=== PATIENT | male | born 1945 ===

== ENCOUNTER → 2016-10-03 | Day surgery (SDC) | payer OTHER ==
[~2016-10-03] MED LIST: 500ML BSS 0.3ML EPI 1:1000PF IRRIG ONE; ACETAMINOPHEN 325 MG TAB PO PRN; AMVISC PLUS 0.8ML SYRINGE INT OCU ONE; ASPCH81X PO; BSS FLUSH ONE; BUPR-83 PO; BUPR75TA20 PO; CALC625T8 PO; CLN200 PO; DULO60CA44 PO; EpINEphrine INJ 1MG/ML AMP 1 MG/ML AMP ONE; HYT/2 PO; LACTATED RINGER'S 1000ML 500 ML IV SCH; LIDOCAINE 3.5% OPH GEL PER APPLICATION CHARGE ONE; LIDOCAINE HCL 1% MPF 2 ML VIAL ONE; MIDAZOLAM HCL 1 MG/ML 2ML VIAL ONE; OCUCOAT 1 ML SOLN IO ONE; POVIDONE-IODINE OP SOLN 30 ML BTL ONE; PROPARACAINE 0.5% OP SOLN PER DROP CHARGE OPL SCH; SENN-61 PO; SODIUM CHLORIDE 0.9% 500ML IV SCH; TOBRAMYCIN/DEXAMETHASONE OPH OINT PER APPLN CHARGE ONE
[2016-10-03] MEDS: PHENYLEPHRINE HCL 2.5% OP SOLN PER DROP CHARGE OPL SCH ×2 (09:49→09:54)
[2016-10-03] MEDS: TROPICAMIDE 1% OP SOLN PER DROP CHARGE OPL SCH ×2 (09:50→09:55)
[2016-10-03] MEDS: CYCLOPENTOLATE HCL 1% OP SOLN PER DROP CHARGE OPL SCH ×2 (09:51→09:56)
[2016-10-03] MEDS: KETOROLAC 0.5% OP SOLN PER DROP CHARGE OPL SCH ×2 (09:52→09:57)
[2016-10-03] MEDS: GATIFLOXACIN OP SOLN PER DROP CHARGE OPL SCH ×2 (09:53→10:03)
--- NOTE | 2016-10-03 10:40 | History & Physical Bridge - [place] ---
H&P Re-Evaluation Bridge Note: I have examined the patient, reviewed the History & Physical and in the interval since the performance of the History & Physical I have noted the following changes of clinical significance: No changes noted
--- NOTE | 2016-10-03 11:19 | [facility] Operative Report ---
Operative Report 1. PREOPERATIVE DIAGNOSIS: Cataract of the left eye. 2. POSTOPERATIVE DIAGNOSIS: Same. 3. PROCEDURE: Phacoemulsification with intraocular lens implantation of the left eye. SURGEON: Dr. Benedicto Xiao. ANESTHESIA: Topical Lidocaine gel, 1% Non- Preserved intracameral Lidocaine, and monitored intravenous sedation. INDICATIONS FOR THE PROCEDURE: The patient is a 71 - year-old male with a history of cataract of the left eye causing significant visual impairment. The details of the proposed procedure were explained to the patient who asked appropriate questions and following discussion of all risks, benefits and alternatives agreed to have the procedure done. 4. OPERATION AND FINDINGS: DESCRIPTION OF PROCEDURE: After informed consent was obtained, the patient was brought to the Operating Room at the [facility]. The patient was placed in a supine position and then the left eye was prepped and draped in the usual sterile fashion for intraocular surgery. A drop of topical Lidocaine gel was placed in the operative eye. A wire lid speculum was then placed in the fornices. A corneal paracentesis was then created temporally. The Non-Preserved Lidocaine was then instilled into the anterior chamber. The anterior chamber was then pressurized with viscoelastic. A 2.0 mm clear corneal incision was then created temporally. A cystotome was inserted into the anterior chamber and used to create a tear in the anterior lens capsule. This capsular tear was then used to create a small flap and the flap was dragged in a counterclockwise direction in order to create a continuous curvilinear capsulorrhexis. Hydrodissection was accomplished with balanced salt solution. Phacoemulsification of the lens nucleus was then performed in a standard [id number] technique. The phaco time was 27 seconds with an average power of 12 %. The remaining cortical material was removed using irrigation aspiration. The capsular bag was then filled with viscoelastic. A [employer] Lomb MI60L +20.5 diopters lens was then loaded into the injector and injected into the capsular bag. The remaining viscoelastic was removed with the irrigation aspiration handpiece. The wound was hydrated and then checked and found to be watertight. The intraocular pressure was checked and found to be adequate. The wire lid speculum was removed and the patient's face was cleaned and dried. TobraDex ointment was placed in the inferior fornix. The patient was discharged to the Recovery Room having tolerated the procedure well. There were no complications. The patient will be seen tomorrow in the office for follow-up. I attest to the content of the Intraoperative Record and any orders documented therein. Any exceptions are noted below.
--- NOTE | 2016-10-03 11:19 | Discharge Instructions-SurgCtr ---
Discharge Instructions Visit Reason for Visit: Cataract Left Eye Discharge Discharge Diagnosis / Problem: cataract Discharge Goals Goal(s): Improve function Activity Recommendations Activity Limitations: per Instructions/Follow-up section Anesthesia . Post Anesthesia Instructions: If you have had General Anesthesia or IV Sedation: * Do not drive today. * Resume driving when surgeon permits. * Do not make important decisions or sign legal documents today. * Call surgeon for: 1. Temperature elevations greater than 101 degrees F. 2. Uncontrollable pain. 3. Excessive bleeding. 4. Persistent nausea and vomiting. 5. Medication intolerance (nausea, vomiting or rash). * For nausea and vomiting use only clear liquids such as: tea, soda, bouillon until nausea subsides, then gradually increase diet as tolerated. * If you have any concerns or questions, call your surgeon's office. If physician is unavailable and it is an emergency, call 911 or go to the nearest emergency room. . Instructions / Follow-Up Instructions / Follow-Up ACTIVITY RECOMMENDATIONS: * No strenuous lifting, jogging or running for 4 days * No swimming or yard work for 1 week. * Limited bending is permitted, such as putting on shoes. RETURN TO SCHOOL/WORK: No work until seen by physician in office. MEDICATIONS: Resume previous medications unless instructed otherwise by your surgeon. This includes eye drops for glaucoma. Zymaxid/Gatifloxacin (santiago cap) - one drop every 2 hours until bedtime Nevanac/Ilevro/Prolensa/Ketorolac (avalos cap) - one drop every 4 hours until bedtime Prednisolone (white/pink cap, SHAKE WELL) - one drop every 2 hours until bedtime Starting tomorrow - all 3 drops every 4 hours until seen in the office Optive drops - as needed for discomfort SPECIAL CARE INSTRUCTIONS: * Wear eyeshield when sleeping, for four nights. * You may wear your own glasses or sunglasses while awake. * You may read or watch TV * You may shower and wash your face, but be gentle around the eye and pat dry. * Blurry vision and mild irritation are normal. * Call office if pain is more severe or vision becomes dark at . FOLLOW UP VISIT: Follow-up with Dr Xiao tomorrow. Diet Recommendations Home Diet: resume previous diet Procedures Procedures Performed: Left Cataract Phacoemulsification With Intraocular Lens Implant Pending Studies Studies pending at discharge: no Medical Emergencies . Who to Call and When: Medical Emergencies: If at any time you feel your situation is an emergency, please call 911 immediately. . Non-Emergent Contact Non-Emergency issues call your: C Consultant . . "Provider Documentation" section prepared by Benedicto Xiao.
[2016-10-03 11:34] VITALS: BP 132/80; PULSE 82; O2SAT 97
--- NOTE | 2016-10-03 11:43 | Anesthesia Progress Nt - [facility] ---
Anesthesia Post Op Note Date & Time Oct 03, 2016 at 11:42 Vital Signs Pain Intensity: 0 Vital Signs Past 12 Hours Date Time Temp Pulse Resp B/P Pulse Ox O2 Delivery O2 Flow Rate FiO2 10/03/16 11:34 82 16 132/80 97 Room Air 10/03/16 11:19 36.6 79 16 120/77 98 Room Air 10/03/16 09:44 36.8 83 18 118/73 95 Room Air Notes Mental Status: alert / awake / arousable, participated in evaluation Nausea / Vomiting: adequately controlled Pain: adequately controlled Airway Patency, RR, SpO2: stable & adequate BP & HR: stable & adequate Hydration State: stable & adequate Anesthetic Complications: no major complications apparent Pt doing well.
== END | disposition home or self-care (01) ==
LOC: X.SURG 09:32
PROVIDERS: ATTEND Ophthalmology
DX: H26.9 Unspecified cataract (principal); H54.7 Unspecified visual loss; I63.50 Cerebral infarction due to unspecified occlusion or stenosis of unspecified cerebral artery; M17.9 Osteoarthritis of knee, unspecified

== ENCOUNTER 2019-06-24 06:52 | Inpatient (IN) ==
--- NOTE | 2019-06-23 09:59 | Anesthesiology Consultation ---
Date of Service June 23, 2019 Assessment & Plan (1) Encounter for pre-operative examination: Chart review (06/23): Limited information received from [facility]. Will need to review PMHX/PSHX AM DOS. Chart Review Chart Review: Acceptable Risk for Surgery (pending preop testing) and Patient seen in Pre Admission Testing Teaching & Discussion Pre-Anesthesia Teaching/Discussion Notes: Instructed NPO after midnight before surgery,except medications with 15 cc of water. Medication instructions provided according to the PAT guidelines. History Surgery Operation Date: 06/24/19 09:20 Proposed Procedures p Right Humerus Hardware Removal, - Dallas Villarreal MD s with Irrigation and Debridement - Dallas Villarreal MD Height/Weight Height: 5 ft 6 in Weight: 76.204 kg Allergies Allergy/AdvReac Type Severity Reaction Status Date / Time No Known Drug Allergies Allergy Unknown . Verified 06/19/19 11:54 Medications Home Medications Medication Instructions Recorded Confirmed Last Taken aspirin [Aspirin Low Dose] 81 mg PO DAILY 06/19/19 06/19/19 Unknown carboxymethylcellulose sodium 1 drp OPHTHALMIC (EYE) BID 06/19/19 06/19/19 Unknown [Artificial Tears (cmc)] cyproheptadine 4 mg PO BID PRN 06/19/19 06/19/19 Unknown diclofenac sodium 100 mg PO DAILY 06/19/19 06/19/19 Unknown tamsulosin 0.4 mg PO QPM 06/19/19 06/19/19 Unknown Past Medical History Medical History Enlarged prostate History of rectal bleeding Hx of folliculitis Hypertension Past Surgical History Surgical History History of cataract extraction
[~2019-06-24 06:52] MED LIST changes: -500ML BSS 0.3ML EPI 1:1000PF IRRIG ONE; -ACETAMINOPHEN 325 MG TAB PO PRN; -AMVISC PLUS 0.8ML SYRINGE INT OCU ONE; -ASPCH81X PO; -BSS FLUSH ONE; +BUPIVACAINE 0.25% 30 ML VIAL ONE; -BUPR-83 PO; -BUPR75TA20 PO; -CALC625T8 PO; -CLN200 PO; -DULO60CA44 PO; +EPINEPHrine INJ 1 MG/ML AMP ONE; -EpINEphrine INJ 1MG/ML AMP 1 MG/ML AMP ONE; -HYT/2 PO; +LACTATED RINGER'S 1,000 ML IV SCH; -LACTATED RINGER'S 1000ML 500 ML IV SCH; -LIDOCAINE 3.5% OPH GEL PER APPLICATION CHARGE ONE; -LIDOCAINE HCL 1% MPF 2 ML VIAL ONE; -MIDAZOLAM HCL 1 MG/ML 2ML VIAL ONE; -OCUCOAT 1 ML SOLN IO ONE; -POVIDONE-IODINE OP SOLN 30 ML BTL ONE; -PROPARACAINE 0.5% OP SOLN PER DROP CHARGE OPL SCH; -SENN-61 PO; -SODIUM CHLORIDE 0.9% 500ML IV SCH; -TOBRAMYCIN/DEXAMETHASONE OPH OINT PER APPLN CHARGE ONE; +VANCOMYCIN CONSULT ACTIVE PRN
[2019-06-24 07:40] LABS: Basophils # (auto) 0.03 K/uL (0-0.2); Basophils % (auto) 0.4 %; Hemoglobin 14.2 g/dL (14.0-18.0); Immature Granulocytes # (auto) 0.02 K/uL (0.00-0.02); Immature Granulocytes % (auto) 0.3 %; Lymphocytes # (auto) 1.01 K/uL (1.2-3.4); Lymphocytes % (auto) 15.1 %; Mean Corpuscular Hemoglobin 29.7 pg (25-34); Mean Corpuscular Volume 85.8 fL (80-100); Mean Platelet Volume 9.6 fL (7.4-10.4); Monocytes # (auto) 0.73 K/uL (0.11-0.59); Monocytes % (auto) 10.9 %; Neutrophils % (auto) 70.3 %; Platelet Count 208 K/uL (130-400); RDW Coefficient of Variation 13.7 % (11.5-14.5); RDW Standard Deviation 42.5 fL (36.4-46.3); Red Blood Count 4.78 M/uL (4.7-6.1); White Blood Count 6.69 K/uL (4.8-10.8)
[2019-06-24 07:41] LABS: Mean Corpuscular Hgb Conc 34.6 g/dL (32-36)
[2019-06-24 07:49] LABS: INR 1.1 (0.9-1.1); Prothrombin Time 11.2 Seconds (9.0-12.0)
[2019-06-24] MEDS ORDERED: DEXAMETHASONE SOD INJ 4 MG/ML VIAL ONE (07:53)
[2019-06-24] MEDS ORDERED: MIDAZOLAM HCL 1 MG/ML 2ML VIAL ONE (07:53)
[2019-06-24] MEDS ORDERED: ROCURONIUM BROMIDE 10 MG/ML 5 ML VIAL ONE (07:53)
[2019-06-24] MEDS ORDERED: ONDANSETRON INJ 2 MG/ML 2 ML VIAL ONE ×2 (07:53→14:26)
[2019-06-24] MEDS ORDERED: LIDOCAINE HCL 2% 2 ML VIAL/AMP(20MG/ML) INFIL ONE (07:53)
[2019-06-24] MEDS ORDERED: PROPOFOL IV EMULSION 10 MG/ML 20 ML VIAL IV ONE (07:53)
[2019-06-24] MEDS ORDERED: fentaNYL citrate 100 MCG/2 ML VIAL ONE ×4 (07:54→13:25)
[2019-06-24 07:57] LABS: Albumin Level 3.7 gm/dl (3.4-5.0); BUN Creatinine Ratio 16.7 (10-20); Bilirubin Direct 0.2 mg/dl (0-0.2); Calcium 9.1 mg/dl (8.5-10.1); Creatinine Clr Calc Pharmacy 55.4 ml/min; Est GFR (Non-African American) 69.9; Potassium 4.1 mmol/L (3.5-5.1)
[2019-06-24 08:00] LABS: Bilirubin,Total 0.7 mg/dl (0.2-1); Total Protein 7.5 gm/dl (6.4-8.2)
[2019-06-24] MEDS ORDERED: ePHEDrine sulfate 50 MG/ML AMP IV PRN (08:19)
[2019-06-24] MEDS ORDERED: ONDANSETRON INJ 2 MG/ML 2 ML VIAL IV PRN ×2 (08:19→16:26)
[2019-06-24] MEDS ORDERED: ATROPINE SULFATE 0.1 MG/ML 10ML SYR IV PRN (08:19)
[2019-06-24] MEDS ORDERED: fentaNYL citrate 100 MCG/2 ML VIAL IV PRN (08:19)
[2019-06-24] MEDS ORDERED: LIDOCAINE HCL 1% 20 ML VIAL ONE (10:26)
[2019-06-24] MEDS ORDERED: BUPIVACAINE 0.5 % 5 MG/1 ML MPF 30ML VIAL ONE (10:26)
[2019-06-24] MEDS ORDERED: BACITRACIN INJ 50,000 UNIT VIAL ONE (10:27)
[2019-06-24] MEDS ORDERED: GENTAMICIN SULFATE 40 MG/ML 2 ML VIAL ONE (10:40)
[2019-06-24] MEDS ORDERED: VANCOMYCIN HCL 1000MG/20ML VIAL ONE (10:41)
[2019-06-24] MEDS: CEFAZOLIN 1000MG 1,000 MG/7.5 ML SYR IV SCH ×2 (11:18→13:57)
[2019-06-24] MEDS: VANCOMYCIN HCL 1,000 MG/270 ML BAG IV SCH ×2 (11:19→13:57)
[2019-06-24] MEDS ORDERED: HYDROmorphone INJ 2 MG/ML SYR/VIAL ONE (13:00)
[2019-06-24] MEDS ORDERED: KETAMINE HCL INJ 50 MG/ML 10 ML VIAL ONE (13:58)
[2019-06-24] MEDS ORDERED: GLYCOPYRROLATE 0.2 MG/ML VIAL ONE (13:58)
[2019-06-24] MEDS ORDERED: ACETAMINOPHEN 1000 MG/100 ML IV IV ONE (14:04)
--- NOTE | 2019-06-24 15:23 | Operative Report ---
Post Operative Report Pre & Post Diagnosis Operation Date: 06/24/19 09:20 Pre-Op Diagnosis: Right Humerus Hardware Infection Post-Op Diagnosis: Right Humerus Hardware Infection Procedure Operation Date: 06/24/19 09:20 Actual Procedures p Right Humerus Hardware Removal,(Right) - Dallas Villarreal MD s with Irrigation and Debridement(Right) - Dallas Villarreal MD Surgeon Dallas Villarreal M.D. Floor Attendant Antonio Burrows, fellow and Duyen Ramos PA-C Estimated Blood Loss 100 Findings Consistent with Post-Op Diagnosis Specimens removed hardware, bone and soft tissue cultures Anesthesia Type General Regional Complications none Description of Procedure Patient was taken to the operating room and placed under general anesthesia. His IV antibiotics were held due to intraoperative cultures. He was given 1 g of IV vancomycin after the intraoperative cultures were obtained. Time out was performed. He is prepped and draped in routine sterile fashion. I was present for the entire case and assisted with exposure, hemostasis, explantation of the hardware, splinting and closure. Please see Dr. Villarreal's operative report for further detail. Patient was awakened and transferred to recovery room in stable condition. I attest to the content of the Intraoperative Record and any orders documented therein. Any exceptions are noted below.
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
--- NOTE | 2019-06-24 15:24 | Fluoroscopy Report ---
FL humerus RT 2V CLINICAL HISTORY: RT HARDWARE REMOVAL COMPARISON STUDY: Right humerus 05/07/2019. FLUOROSCOPY TIME: 5 seconds. FINDINGS: 3 fluoroscopic spot images of the right humerus. Interval removal of the lateral cortical p late and screws. Multiple punctate metallic densities again noted within the right upper arm and righ t lateral chest wall. These remain unchanged. Old, healed right humeral fracture is again noted. IMPRESSION: Fluoroscopy provided for removal of the right humeral cortical plate and screws. Electronically signed by: Kali Uribe M.D. 06/24/2019 3:23 PM
--- NOTE | 2019-06-24 15:26 | Operative Report ---
Post Operative Report Pre & Post Diagnosis Operation Date: 06/24/19 09:20 Pre-Op Diagnosis: Right Humerus Hardware Infection Post-Op Diagnosis: Right Humerus Hardware Infection Procedure Operation Date: 06/24/19 09:20 Actual Procedures p Right Humerus Hardware Removal,(Right) - Dallas Villarreal MD s with Irrigation and Debridement(Right) - Dallas Villarreal MD Surgeon Dallas Villarreal MD Morgue Technician Antonio Burrows, fellow and Duyen Ramos PA-C Estimated Blood Loss 100 Findings Consistent with Post-Op Diagnosis Specimens as per procedure notes Drains none Complications none Disposition Accompanied Patient To Recovery: Yes Disposition: Recovery Room Description of Procedure Beach Chair position Standard prep and drape Time out Right Humerus Hardware Removal with Irrigation and Debridement Please see Dr Villarreal's procedure notes for specific details I was present throughout the procedure, assisted for wound closure, splint application and transferred the patient to PACU in stable condition I attest to the content of the Intraoperative Record and any orders documented therein. Any exceptions are noted below.
[2019-06-24 15:48] LABS: Hematocrit (blood only) 36.2 % (42-52); Hemoglobin 12.6 g/dL (14.0-18.0)
[2019-06-24] MEDS ORDERED: TRAMADOL HCL 50 MG TABLET PO PRN (16:26)
[2019-06-24] MEDS ORDERED: CYPROHEPTADINE HCL 4 MG TAB PO PRN (16:26)
[2019-06-24] MEDS ORDERED: bisacodyL 10 MG SUPP PR PRN (16:26)
[2019-06-24] MEDS ORDERED: NALOXONE HCL 0.4 MG/1 ML VIAL/CARP IV PRN (16:26)
[2019-06-24] MEDS ORDERED: SODIUM CHLORIDE 0.9% 1000ML 1,000 ML IV SCH (16:26)
[2019-06-24] MEDS ORDERED: VANCOMYCIN CONSULT ACTIVE PRN (16:26)
[2019-06-24] MEDS ORDERED: METOCLOPRAMIDE HCL INJ 5 MG/ML 2 ML VIAL IV PRN (16:26)
[2019-06-24] MEDS ORDERED: KETOROLAC TROMETHAMINE 15 MG/ML VIAL IV PRN (16:26)
[2019-06-24] MEDS ORDERED: VANCOMYCIN HCL 1,750 MG in SODIUM CHLORIDE 0.9% 500 ML IV STA (17:08)
--- NOTE | 2019-06-24 17:11 | Anesthesiology Progress Note ---
Date of Service June 24, 2019 Anesthesia Post Procedure Vital Signs Vital Signs: Temp Pulse Pulse Resp BP Pulse Ox 06/24/19 16:30 36.4 C L 73 16 116/73 100 06/24/19 16:15 72 12 104/62 95 06/24/19 16:05 36.2 C L 75 15 113/73 98 06/24/19 15:55 75 14 107/68 99 06/24/19 15:45 77 20 108/74 98 06/24/19 15:35 79 18 119/92 98 06/24/19 15:25 80 13 101/68 93 06/24/19 15:16 36.0 C L 82 17 103/80 91 06/24/19 07:57 36.6 C 75 20 130/77 98 Pain Intensity Right Upper Posterior Arm: Pain Intensity: 8 Left Foot: Pain Intensity: 8 Transfer of Care Handoff Completed per policy Notes Mental Status: alert / awake / arousable and participated in evaluation Patient Amnestic to Procedure: Yes Nausea / Vomiting: adequately controlled Pain: adequately controlled Airway Patency, RR, SpO2: stable & adequate BP & HR: stable & adequate Hydration State: stable & adequate Anesthetic Complications: no major complications apparent and Pt Satisfied with anesthetic care
[2019-06-24] MEDS ORDERED: ARTIFICIAL TEARS OP SCH (17:15)
[2019-06-24] MEDS: OXYCODONE HCL IR 5 MG TAB (IMMEDIATE RELEASE) PO PRN (17:58)
--- NOTE | 2019-06-24 17:58 | Orthopedic Progress Note ---
Date of Service June 24, 2019 Assessment & Plan (1) Osteomyelitis of right humerus: Cultures pending. Continue vancomycin. Await ID consultation. Antibiotic impregnated absorbable beads were inserted. Patient was educated about the surgical findings. We discussed the infection bone loss the need for splinting complete removal of the hardware and the plan for probable antibiotics PICC line ID consult etc. The radial nerve is functioning less than the did previously undoubtably because of the extensive dissection and removing it from 6 to 8 cm of being encased within fracture callus. Will monitor. Present on Admission?: Yes (2) Acute blood loss as cause of postoperative anemia: Postop H&H 12 and 36. Asymptomatic and requires no treatment at this time. We will continue to monitor and recheck in the morning. Present on Admission?: No Subjective Nauseated. Starting to feel pain. Physical Exam Physical Exam: Unable to extend thumb but does have weakly intact thumb flexion about 3 out of 5 equal to what he had preoperatively. There is numbness throughout the hand unchanged compared to previous perhaps a little bit more numbness towards the thumb. Capillary refill less than 2 seconds. Radial puls es 1+. Dressing clean and dry. Results & Data Vital Signs (Past 12 Hours) Vital Signs Temp Pulse Pulse Resp BP Pulse Ox 06/24/19 17:15 36.4 C L 74 16 104/69 95 06/24/19 16:30 36.4 C L 73 16 116/73 100 06/24/19 16:15 72 12 104/62 95 06/24/19 16:05 36.2 C L 75 15 113/73 98 06/24/19 15:55 75 14 107/68 99 06/24/19 15:45 77 20 108/74 98 06/24/19 15:35 79 18 119/92 98 06/24/19 15:25 80 13 101/68 93 06/24/19 15:16 36.0 C L 82 17 103/80 91 06/24/19 07:57 36.6 C 75 20 130/77 98 Laboratory Results 06/24/19 06/24/19 06/24/19 Range/Units 15:33 15:33 07:28 WBC (4.8-10.8) K/uL RBC (4.7-6.1) M/uL Hgb 12.6 L (14.0-18.0) g/dL Hct 36.2 L (42-52) % MCV (80-100) fL MCH (25-34) pg MCHC (32-36) g/dL RDW Std Deviation (36.4-46.3) fL RDW Coeff of Karen (11.5-14.5) % Plt Count (130-400) K/uL MPV (7.4-10.4) fL Immature Gran % (Auto) % Neut % (Auto) % Lymph % (Auto) % [place] % (Auto) % Eos % (Auto) % Baso % (Auto) % Immature Gran # (Auto) (0.00-0.02) K/uL Neut # (Auto) (1.4-6.5) K/uL Lymph # (Auto) (1.2-3.4) K/uL Har[place] # (Auto) (0.11-0.59) K/uL Eos # (Auto) (0-0.5) K/uL Baso # (Auto) (0-0.2) K/uL PT (9.0-12.0) Seconds INR (0.9-1.1) Sodium 138 (136-145) mmol/L Potassium 4.1 (3.5-5.1) mmol/L Chloride 105 (98-107) mmol/L Carbon Dioxide 26 (21-32) mmol/L Anion Gap 7.0 (3-11) BUN 17 (7-18) mg/dl Creatinine 1.04 (0.6-1.4) mg/dl Est Cr Clr Drug Dosing 55.4 ml/min Est GFR ( Amer) 81.0 Est GFR (Non-Af Amer) 69.9 BUN/Creatinine Ratio 16.7 (10-20) Glucose 107 H (70-99) mg/dl Calcium 9.1 (8.5-10.1) mg/dl Total Bilirubin 0.7 (0.2-1) mg/dl Direct Bilirubin 0.2 (0-0.2) mg/dl AST 20 (15-37) U/L ALT 24 (12-78) U/L Alkaline Phosphatase 83 (45-117) U/L Total Protein 7.5 (6.4-8.2) gm/dl Albumin 3.7 (3.4-5.0) gm/dl Blood Type O Positive Antibody Screen NEGATIVE 06/24/19 06/24/19 Range/Units 07:28 07:28 WBC 6.69 (4.8-10.8) K/uL RBC 4.78 (4.7-6.1) M/uL Hgb 14.2 (14.0-18.0) g/dL Hct 41.0 L (42-52) % MCV 85.8 (80-100) fL MCH 29.7 (25-34) pg MCHC 34.6 (32-36) g/dL RDW Std Deviation 42.5 (36.4-46.3) fL RDW Coeff of Karen 13.7 (11.5-14.5) % Plt Count 208 (130-400) K/uL MPV 9.6 (7.4-10.4) fL Immature Gran % (Auto) 0.3 % Neut % (Auto) 70.3 % Lymph % (Auto) 15.1 % [place] % (Auto) 10.9 % Eos % (Auto) 3.0 % Baso % (Auto) 0.4 % Immature Gran # (Auto) 0.02 (0.00-0.02) K/uL Neut # (Auto) 4.70 (1.4-6.5) K/uL Lymph # (Auto) 1.01 L (1.2-3.4) K/uL [place] # (Auto) 0.73 H (0.11-0.59) K/uL Eos # (Auto) 0.20 (0-0.5) K/uL Baso # (Auto) 0.03 (0-0.2) K/uL PT 11.2 (9.0-12.0) Seconds INR 1.1 (0.9-1.1) Sodium (136-145) mmol/L Potassium (3.5-5.1) mmol/L Chloride (98-107) mmol/L Carbon Dioxide (21-32) mmol/L Anion Gap (3-11) BUN (7-18) mg/dl Creatinine (0.6-1.4) mg/dl Est Cr Clr Drug Dosing ml/min Est GFR ( Amer) Est GFR (Non-Af Amer) BUN/Creatinine Ratio (10-20) Glucose (70-99) mg/dl Calcium (8.5-10.1) mg/dl Total Bilirubin (0.2-1) mg/dl Direct Bilirubin (0-0.2) mg/dl AST (15-37) U/L ALT (12-78) U/L Alkaline Phosphatase (45-117) U/L Total Protein (6.4-8.2) gm/dl Albumin (3.4-5.0) gm/dl Blood Type Antibody Screen
[2019-06-24] MEDS: SENNA 8.6 MG TAB PO SCH (19:42)
[2019-06-24] MEDS: DOCUSATE SODIUM 100 MG CAP PO SCH (19:42)
[2019-06-24] MEDS: TAMSULOSIN HCL 0.4 MG CAP PO SCH (19:43)
[2019-06-24] MEDS: ARTIFICIAL TEARS OP SCH (20:30)
[2019-06-24] MEDS: ACETAMINOPHEN 500 MG TAB PO SCH (22:23)
[2019-06-25] MEDS: ACETAMINOPHEN 500 MG TAB PO SCH ×3 (05:01→21:50)
[2019-06-25 05:26] LABS: Hematocrit (blood only) 32.4 % (42-52); Hemoglobin 11.2 g/dL (14.0-18.0); Mean Corpuscular Hgb Conc 34.6 g/dL (32-36); Mean Corpuscular Volume 86.9 fL (80-100); Mean Platelet Volume 9.7 fL (7.4-10.4); Platelet Count 227 K/uL (130-400); RDW Coefficient of Variation 13.9 % (11.5-14.5); RDW Standard Deviation 43.9 fL (36.4-46.3); Red Blood Count 3.73 M/uL (4.7-6.1); White Blood Count 11.27 K/uL (4.8-10.8)
[2019-06-25 05:59] LABS: BUN Creatinine Ratio 19.9 (10-20); Calcium 7.9 mg/dl (8.5-10.1); Creatinine Clr Calc Pharmacy 47.4 ml/min; Est GFR (African American) 68.1; Est GFR (Non-African American) 58.8
[2019-06-25] MEDS: MULTIVITAMIN TAB PO SCH (07:32)
[2019-06-25] MEDS: DOCUSATE SODIUM 100 MG CAP PO SCH ×2 (07:32→21:50)
[2019-06-25] MEDS: ARTIFICIAL TEARS OP SCH ×2 (07:32→21:50)
[2019-06-25] MEDS: ASPIRIN 81 MG ECTAB PO SCH (07:32)
[2019-06-25] MEDS ORDERED: VANCOMYCIN HCL 1,000 MG in SODIUM CHLORIDE 0.9% 250 ML IV SCH (08:00)
--- NOTE | 2019-06-25 09:19 | Pharmacy Report ---
Pharmacy Abx Initial Consult - Date of Service June 25, 2019 - Pharmacy Dosing Scope Date of Consult: 06/25/19 Consultation requested by: Jean-Claude Ramos Pharmacy is consulted to initiate Vancomycin IV dosing therapy, order appropriate labs and adjust drug dose/frequency. - Subjective The patient is a 73 year old M admitted on 06/24/19 15:20. - Objective Height: 5 ft 6 in Weight: 72.32 kg Vital Signs (Past 12hrs): Vital Signs Temp Pulse Resp BP Pulse Ox 06/25/19 07:47 36.8 C 87 16 116/71 92 06/25/19 03:07 36.5 C 84 16 110/67 93 06/24/19 23:26 36.7 C 74 14 107/71 97 06/24/19 23:25 86 L Lab Results (24hrs): Laboratory Tests (24 Hours) 06/25/19 06/25/19 04:47 04:47 WBC 11.27 H Creatinine 1.20 Est Cr Clr Drug Dosing 47.4 Micro Results: 06/24/19 12:09 Gram Stain - Final Arm,Right Aerobic and Anaerobic Culture - Pending 06/24/19 11:57 Gram Stain - Final Arm,Right Aerobic and Anaerobic Culture - Pending 06/24/19 Unknown Gram Stain - Final Arm,Right Aerobic and Anaerobic Culture - Pending - Risk Factors for Resistance * Incarcerated - Assessment & Plan Assessment 73 year old M initiated on IV Vancomycin for osteomyelitis Slight bump in Scr over the past 24hrs 1.04 --> 1.2 mg/dl; will monitor closely and adjust vanco per levels Plan Vancomycin IV * Estimated PK Parameters: Vd 0.6 L/kg, Ricky 0.04 hr-1, t1/2 15.75 hr * Loading dose: 1,750 mg (24 mg/kg) * Maintenance dose: 1,000 mg IV (14 mg/kg) every 16 hours * Goal trough level for osteo : 15 to 20 mcg/mL * Trough level ordered for 06/27/19 @ 0730 Pharmacy will continue to follow and will adjust dose/frequency as necessary. Thank you.
--- NOTE | 2019-06-25 10:00 | Orthopedic Progress Note ---
Date of Service June 25, 2019 Assessment & Plan (1) Osteomyelitis of right humerus: Cultures pending. Continue vancomycin. Await ID consultation. Antibiotic impregnated absorbable beads were inserted. Patient was educated about the surgical findings. We discussed the infection bone loss the need for splinting complete removal of the hardware and the plan for probable antibiotics PICC line ID consult etc. The radial nerve is functioning less than the did previously undoubtably because of the extensive dissection and removing it from 6 to 8 cm of being encased within fracture callus. Will monitor. OOB today - will need cane to amublate with as he says he always uses one in his left hand. Ice to right arm as needed for pain/swelling Reinforce dressings as needed. Will change dressing possibly later today or tomorrow. Await ID recommendations. Continue regular diet. Will discuss findings with Dr. Villarreal (2) Acute blood loss as cause of postoperative anemia: Continues to be asymptomatic. Will continue to monitor (3) Vitamin D deficiency: Vitamin D level 15. Will plan for 50,000 IU Vitamin D2 to start today and continue for 6 weeks, then will recheck. Subjective Sitting in bed, comfortable. Pain controlled with pain medications. States otherwise has pain with movement. Physical Exam Physical Exam: Right arm splint intact, bloody drainage on dressings, reinforced thru the night. Chronic sensation loss and contractures right hand. Sling readjusted. Hand warm. Distal pulse 1+ Results & Data Vital Signs (Past 12 Hours) Vital Signs Temp Pulse Resp BP Pulse Ox 06/25/19 07:47 36.8 C 87 16 116/71 92 06/25/19 03:07 36.5 C 84 16 110/67 93 06/24/19 23:26 36.7 C 74 14 107/71 97 06/24/19 23:25 86 L Laboratory Results 06/25/19 06/25/19 06/25/19 Range/Units 04:47 04:47 04:47 WBC 11.27 H (4.8-10.8) K/uL RBC 3.73 L (4.7-6.1) M/uL Hgb 11.2 L (14.0-18.0) g/dL Hct 32.4 L (42-52) % MCV 86.9 (80-100) fL MCH 30.0 (25-34) pg MCHC 34.6 (32-36) g/dL RDW Std Deviation 43.9 (36.4-46.3) fL RDW Coeff of Karen 13.9 (11.5-14.5) % Plt Count 227 (130-400) K/uL MPV 9.7 (7.4-10.4) fL Sodium 137 (136-145) mmol/L Potassium 5.0 D (3.5-5.1) mmol/L Chloride 104 (98-107) mmol/L Carbon Dioxide 25 (21-32) mmol/L Anion Gap 8.0 (3-11) BUN 24 H (7-18) mg/dl Creatinine 1.20 (0.6-1.4) mg/dl Est Cr Clr Drug Dosing 47.4 ml/min Est GFR ( Amer) 68.1 Est GFR (Non-Af Amer) 58.8 BUN/Creatinine Ratio 19.9 (10-20) Glucose 153 H (70-99) mg/dl Calcium 7.9 L (8.5-10.1) mg/dl 25-OH Vitamin D Total 15.0 L (30-100) ng/ml Nasal Screen MRSA (PCR) (Negative) Blood Type Antibody Screen 06/24/19 06/24/19 06/24/19 Range/Units 18:35 15:33 15:33 WBC (4.8-10.8) K/uL RBC (4.7-6.1) M/uL Hgb 12.6 L (14.0-18.0) g/dL Hct 36.2 L (42-52) % MCV (80-100) fL MCH (25-34) pg MCHC (32-36) g/dL RDW Std Deviation (36.4-46.3) fL RDW Coeff of Karen (11.5-14.5) % Plt Count (130-400) K/uL MPV (7.4-10.4) fL Sodium (136-145) mmol/L Potassium (3.5-5.1) mmol/L Chloride (98-107) mmol/L Carbon Dioxide (21-32) mmol/L Anion Gap (3-11) BUN (7-18) mg/dl Creatinine (0.6-1.4) mg/dl Est Cr Clr Drug Dosing ml/min Est GFR ( Amer) Est GFR (Non-Af Amer) BUN/Creatinine Ratio (10-20) Glucose (70-99) mg/dl Calcium (8.5-10.1) mg/dl 25-OH Vitamin D Total (30-100) ng/ml Nasal Screen MRSA (PCR) Negative (Negative) Blood Type O Positive Antibody Screen NEGATIVE Microbiology: intra-operative cultures pending, no organisms seen on gram stains x 3
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
[2019-06-25] MEDS ORDERED: ERGOCALCIFEROL 50,000 UNITS CAP PO SCH (10:30)
[2019-06-25] MEDS ORDERED: cefTRIAXone SODIUM 1,000 MG in DEXTROSE 5% 50 ML IV SCH (15:00)
--- NOTE | 2019-06-25 16:03 | Progress Note ---
DATE: 06/25/2019 Had some bleeding through the dressing, which was reinforced. Has some pain, which seems to be reasonably well controlled. Has been seen by ID. His splint and dressing are intact. Restrictions on use of the arm are reinforced. He does not have any active extension of the thumb, but does have intact thumb IP flexion which is 3+ to 4-/5. There is numbness over the back of the thumb. 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 Likewise for the posterior cutaneous nerve of the arm. His white count is 11, hemoglobin 11, hematocrit 33, platelet count is 227. He is afebrile. His vital signs are stable. He has acute postoperative anemia secondary to blood loss. He does not require any treatment for this. His PRP is noted. Vitamin D level is low and will be replaced. C-reactive protein is 2.6. Sed rate 9. Cultures are growing out 2 different species of gram negative bacilli. No staff so far. Will add Rocephin 1 gram IV q. 24 pending further evaluation by Dr. Valentine. We will follow up with the patient tomorrow regarding further treatment plans. He may be out of bed as tolerated and did well with PT. He can use a cane on the left side.
[2019-06-25] MEDS: OXYCODONE HCL IR 5 MG TAB (IMMEDIATE RELEASE) PO PRN ×2 (18:06→21:53)
[2019-06-25] MEDS: TAMSULOSIN HCL 0.4 MG CAP PO SCH (21:50)
[2019-06-25] MEDS: SENNA 8.6 MG TAB PO SCH (21:50)
[2019-06-25] MEDS: VANCOMYCIN HCL 1,000 MG in SODIUM CHLORIDE 0.9% 250 ML IV SCH (23:59)
[2019-06-26] MEDS: OXYCODONE HCL IR 5 MG TAB (IMMEDIATE RELEASE) PO PRN ×3 (03:58→21:31)
[2019-06-26] MEDS: ACETAMINOPHEN 500 MG TAB PO SCH ×3 (05:21→21:24)
[2019-06-26 07:05] LABS: Creatinine Clr Calc Pharmacy 52.4 ml/min; Est GFR (African American) 75.7; Est GFR (Non-African American) 65.3
[2019-06-26] MEDS: ARTIFICIAL TEARS OP SCH ×2 (07:39→21:24)
[2019-06-26] MEDS: MULTIVITAMIN TAB PO SCH (07:39)
[2019-06-26] MEDS: DOCUSATE SODIUM 100 MG CAP PO SCH ×2 (07:39→21:24)
[2019-06-26] MEDS: ASPIRIN 81 MG ECTAB PO SCH (07:39)
[2019-06-26] MEDS: cefTRIAXone SODIUM 2,000 MG in DEXTROSE 5% 50 ML IV SCH (09:53)
[2019-06-26] MEDS: HYDROmorphone INJ 0.5 MG/0.5 ML SYR IV PRN ×2 (12:38→18:03)
--- NOTE | 2019-06-26 12:45 | Orthopedic Progress Note ---
Date of Service June 26, 2019 Assessment & Plan (1) Osteomyelitis of right humerus: Currently on vancomycin and Rocephin. Sensitivities are noted. 2 different species of Serratia marcescens growing. Will await infectious diseases recommendations in terms of antibiotic route and duration. For now we will continue with his hospitalization. Present on Admission?: Yes (2) Acute blood loss as cause of postoperative anemia: Asymptomatic and does not require treatment. Present on Admission?: No (3) Vitamin D deficiency: Being replenished. Present on Admission?: Yes Subjective Some pain. We discussed what pain medication he has available. Has not gone to the bathroom. He is been getting stool softener and stimulant. He has other things he can ask for as well. Physical Exam Physical Exam: Decreased sensation on the dorsum of the thumb. Cannot extend the thumb but can flex the IP joint. There is no movement of the fingers or wrist which is chronic. Radial pulses 1+. Dressing is changed. Compartments are soft wound is benign there is no active drainage although there was a fair amount of soaking of the dressings. The arm was cleaned and then redressed with Xeroform 4 x 4's ABD cast padding and a posterior splint with the elbow at about 85 degrees of flexion. Results & Data Vital Signs (Past 12 Hours) Vital Signs Temp Pulse Resp BP Pulse Ox 06/26/19 08:00 36.6 C 61 16 114/70 90 Laboratory Results Microbiology 06/25/19 10:47 Aerobic Blood Culture - Preliminary Blood No growth in Aerobic bottle after 24 hours. Anaerobic Blood Culture - Preliminary No growth in Anaerobic bottle after 24 hours. 06/25/19 10:40 Aerobic Blood Culture - Preliminary Blood No growth in Aerobic bottle after 24 hours. Anaerobic Blood Culture - Preliminary No growth in Anaerobic bottle after 24 hours. 06/24/19 11:57 Gram Stain - Final Arm,Right Aerobic and Anaerobic Culture - Preliminary Serratia marcescens Serratia marcescens#2 06/24/19 Unknown Gram Stain - Final Arm,Right Aerobic and Anaerobic Culture - Preliminary Serratia marcescens 06/24/19 12:09 Gram Stain - Final Arm,Right Aerobic and Anaerobic Culture - Preliminary No growth to date. 06/26/19 Range/Units 05:59 Creatinine 1.10 (0.6-1.4) mg/dl Est Cr Clr Drug Dosing 52.4 ml/min Est GFR ( Amer) 75.7 Est GFR (Non-Af Amer) 65.3
--- NOTE | 2019-06-26 13:51 | Infectious Disease Progress Nt ---
Date of Service June 26, 2019 Assessment & Plan (1) Post op infection: Agree with rocephin, increased dose to 2 g daily. No MRSA growing in current cultues, if no gpc found tomorrow, will likely stop vanco. will likely require min 6 weeks abx for infected hardware - if blood cultures negative and pt able to return to [facility] with picc, could be placed tomorrow with plans for 6 weeks IV rocephin 2g daily with weekly cbc,cmp,esr. If he is unable to return with picc line, po levaquin 500mg daily would be alternative. continue wound care.will follow. Subjective 2/3 OR cultures growing Serritia - placed on rocephin in addition to vanco (pt reports h/o MRSA), tolerating well. afebrile. blood cultures negative to date. creat 1.1 Results & Data Vital Signs (Past 12 Hours) Vital Signs Temp Pulse Resp BP Pulse Ox 06/26/19 08:00 36.6 C 61 16 114/70 90 Laboratory Results Microbiology 06/25/19 10:47 Blood Aerobic Blood Culture - Preliminary No growth in Aerobic bottle after 24 hours. 06/25/19 10:47 Blood Anaerobic Blood Culture - Preliminary No growth in Anaerobic bottle after 24 hours. 06/25/19 10:40 Blood Aerobic Blood Culture - Preliminary No growth in Aerobic bottle after 24 hours. 06/25/19 10:40 Blood Anaerobic Blood Culture - Preliminary No growth in Anaerobic bottle after 24 hours. 06/24/19 11:57 Arm,Right Gram Stain - Final 06/24/19 11:57 Arm,Right Aerobic and Anaerobic Culture - Preliminary Serratia marcescens Serratia marcescens#2 06/24/19 Unknown Arm,Right Gram Stain - Final 06/24/19 Unknown Arm,Right Aerobic and Anaerobic Culture - Preliminary Serratia marcescens 06/24/19 12:09 Arm,Right Gram Stain - Final 06/24/19 12:09 Arm,Right Aerobic and Anaerobic Culture - Preliminary No growth to date. PG Care Time/CCT Total # of Minutes Spent Total Time Spent with Patient: Total time spent is greater than 50% in coordination of care (as documented) at patient's floor/unit and/or counseling patient:
[2019-06-26] MEDS: VANCOMYCIN HCL 1,000 MG in SODIUM CHLORIDE 0.9% 250 ML IV SCH (16:06)
[2019-06-26] MEDS: MAGNESIUM HYDROXIDE SUSP 30 ML UDC PO PRN ×2 (16:06→21:24)
[2019-06-26] MEDS: SENNA 8.6 MG TAB PO SCH (21:24)
[2019-06-26] MEDS: TAMSULOSIN HCL 0.4 MG CAP PO SCH (21:24)
[2019-06-27] MEDS: HYDROmorphone INJ 0.5 MG/0.5 ML SYR IV PRN (00:53)
[2019-06-27] MEDS: OXYCODONE HCL IR 5 MG TAB (IMMEDIATE RELEASE) PO PRN ×3 (03:52→17:59)
[2019-06-27] MEDS: ACETAMINOPHEN 500 MG TAB PO SCH ×2 (05:21→13:32)
[2019-06-27 06:35] LABS: Creatinine Clr Calc Pharmacy 53.3 ml/min; Est GFR (African American) 77.4; Est GFR (Non-African American) 66.8
[2019-06-27] MEDS ORDERED: VANCOMYCIN TROUGH ONE (07:30)
[2019-06-27] MEDS: VANCOMYCIN HCL 1,000 MG in SODIUM CHLORIDE 0.9% 250 ML IV SCH (07:48)
[2019-06-27] MEDS: DOCUSATE SODIUM 100 MG CAP PO SCH (07:51)
[2019-06-27] MEDS: MULTIVITAMIN TAB PO SCH (07:51)
[2019-06-27] MEDS: ASPIRIN 81 MG ECTAB PO SCH (07:51)
[2019-06-27] MEDS: ARTIFICIAL TEARS OP SCH (07:54)
--- NOTE | 2019-06-27 09:50 | Infectious Disease Progress Nt ---
Date of Service June 27, 2019 Assessment & Plan (1) Post op infection: Agree with rocephin, increased dose to 2 g daily. will likely require min 6 weeks abx for infected hardware - if blood cultures negative and pt able to return to care home with picc, could be placed tomorrow with plans for 6 weeks IV rocephin 2g daily with weekly cbc,cmp,esr. If he is unable to return with picc line, po levaquin 500mg daily would be alternative. continue wound care.will follow. Subjective pt cultures growing Serratia in 2/3 OR cultures, no staph growing, farida stopped this am. blood cultures remain negative, afebrile. Results & Data Vital Signs (Past 12 Hours) Vital Signs Temp Pulse Resp BP Pulse Ox 06/27/19 07:42 36.8 C 79 18 183/100 H 96 06/27/19 00:34 92 06/27/19 00:33 89 16 82 L 06/26/19 23:51 37.0 C 16 148/73 H Laboratory Results Microbiology 06/25/19 10:47 Blood Aerobic Blood Culture - Preliminary No growth in Aerobic bottle after 24 hours. 06/25/19 10:47 Blood Anaerobic Blood Culture - Preliminary No growth in Anaerobic bottle after 24 hours. 06/25/19 10:40 Blood Aerobic Blood Culture - Preliminary No growth in Aerobic bottle after 24 hours. 06/25/19 10:40 Blood Anaerobic Blood Culture - Preliminary No growth in Anaerobic bottle after 24 hours. 06/24/19 11:57 Arm,Right Gram Stain - Final 06/24/19 11:57 Arm,Right Aerobic and Anaerobic Culture - Preliminary Serratia marcescens Serratia marcescens#2 06/24/19 Unknown Arm,Right Gram Stain - Final 06/24/19 Unknown Arm,Right Aerobic and Anaerobic Culture - Preliminary Serratia marcescens 06/24/19 12:09 Arm,Right Gram Stain - Final 06/24/19 12:09 Arm,Right Aerobic and Anaerobic Culture - Preliminary No growth to date. PG Care Time/CCT Total # of Minutes Spent Total Time Spent with Patient: Total time spent is greater than 50% in coordination of care (as documented) at patient's floor/unit and/or counseling patient:
[2019-06-27] MEDS: cefTRIAXone SODIUM 2,000 MG in DEXTROSE 5% 50 ML IV SCH (10:08)
--- NOTE | 2019-06-27 11:25 | Orthopedic Progress Note ---
Date of Service June 27, 2019 Assessment & Plan (1) Osteomyelitis of right humerus: Currently on Rocephin. Will plan to continue x 6 weeks. Sensitivities are noted. 2 different species of Serratia marcescens growing. Recommendations from infectious disease are noted. He is able to go back to return to [facility] with a PICC line, which has been placed. He has had Rocephin 2 g through the PICC line and tolerating fine. The vancomycin has been discontinued. Will discuss findings with Dr. Villarreal. Plan for discharge to [facility] today. Encouraged incentive spirometer. Will need CBC, CMP and ESR weekly while on IV rocephin. (2) Acute blood loss as cause of postoperative anemia: Asymptomatic and does not require treatment. (3) Vitamin D deficiency: Being replenished. continue vitamin d 50,000 IU weekly. Recommend recheck in 6 weeks. Subjective doing well, cultures still pending but growing serratia marcesans. On IV roce phin thru PICC line left arm. States that he's been getting some itchiness, but improved with medication. Denies rashes or skin irritation. States it was after medication, mostly last night. Pain controlled. Splint and sling on right arm. Denies any chest pain or shortness of breath. Tolerating a regular diet. Has not moved his bowels but is urinating fine. Physical Exam Physical Exam: Exam of right upper extremity reveals splint which is clean, dry and intact. Sling right arm in place. Readjusted. Decreased sensation and movement of his fingers but normal for him. May be some decrease in abduction and extension of his right thumb. He is able to flex and hold against resistance. Skin is intact. No excessive edema in his right hand. Ice on right elbow. Results & Data Vital Signs (Past 12 Hours) Vital Signs Temp Pulse Resp BP Pulse Ox 06/27/19 07:42 36.8 C 79 18 183/100 H 96 06/27/19 00:34 92 06/27/19 00:33 89 16 82 L 06/26/19 23:51 37.0 C 16 148/73 H Laboratory Results Microbiology 06/25/19 10:47 Aerobic Blood Culture - Preliminary Blood No growth in Aerobic bottle after 24 hours. Anaerobic Blood Culture - Preliminary No growth in Anaerobic bottle after 24 hours. 06/25/19 10:40 Aerobic Blood Culture - Preliminary Blood No growth in Aerobic bottle after 24 hours. Anaerobic Blood Culture - Preliminary No growth in Anaerobic bottle after 24 hours. 06/24/19 11:57 Gram Stain - Final Arm,Right Aerobic and Anaerobic Culture - Preliminary Serratia marcescens Serratia marcescens#2
--- NOTE | 2019-06-27 14:03 | Discharge Summary ---
Date of Service June 27, 2019 Discharge Data Consultations 06/24/19 16:26 Consult Case Management - Discharge Planning Routine Consult Infectious Diseases Routine Procedures Performed Operation Date: 06/24/19 09:20 Actual Procedures p Right Humerus Hardware Removal,(Right) - Dallas Villarreal MD s with Irrigation and Debridement(Right) - Dallas Villarreal MD Hospital Course (1) Osteomyelitis of right humerus: Patient was admitted to [facility] on June 24, 2019 after undergoing an incision and drainage, removal of hardware right upper extremity for infection of his right humerus. History was perform a Dr. Villarreal. His surgery was perform a general anesthesia. A nerve block was not performed due to his active infection. His MRI is were held preoperatively due to taking intraoperative cultures. He was given 1 g of Ancef and 1 g of vancomycin after intraoperative cultures were obtained. The vancomycin was continued postoperatively. Intraoperative wound cultures and bone and soft tissue cultures were obtained. He tolerated the surgery well. He was allowed out of bed with the assistance of a cane in his left hand. He was to be nonweightbearing of his right upper extremity and to keep him in a sling at all times. He had a splint on his right arm and was advised to keep that on at all times as well. Infectious disease consult was obtained for recommendations regarding antibiotics. Intraoperative cultures were followed and on postoperative day one were positive for gram negative bacilli. IV Rocephin was added to the vancomycin. On post operative day two Sunday she is ulceration marcescens were identified. His IV antibiotics continue to be IV vancomycin and IV Rocephin which was increased to 2 g per day per infectious disease. It was also recommended that he would need IV antibiotics for 6 weeks after surgery. PICC line was placed in his left upper extremity on postoperative day 2. He tolerated a regular diet during his inpatient stay. He did not develop any chest pain or shortness of breath. He had no issues with urinating but did not have a bowel movement during his inpatient stay. He was seen by physical therapy and ambulated without difficulty with the assistance of a cane. His pain was well controlled on oral pain medication. Postoperative day 3 did develop some itchiness which was shielded with an IV antihistamine. The achiness did resolve. It was thought to have come from the IV vancomycin which was discontinued on postoperative day 3. He did not develop any skin rashes or irritations. He is cleared for discharge by orthopedics and infectious disease. He will need a weekly CBC, CMP and sedimentation rate due to his IV Rocephin. Continue the PICC line. Recommend follow-up as instructed. He was discharged to [facility] June 27, 2019 in stable condition. (2) Acute blood loss as cause of postoperative anemia: He did develop postoperative acute blood loss anemia. He remains asymptomatic during his inpatient stay. No treatment was necessary. No mina sfusions. Monitor during his inpatient stay. (3) Vitamin D deficiency: Replenished with vitamin d 50,000 IU weekly. Recommend recheck in 6 weeks. Discharge Instructions as per EMR
== END 2019-06-27 20:02 | DRG 493 ==
LOC: ASU 06:52 → 3E 15:20